=== PATIENT | male | born 1995 | race Caucasian/White ===

== ENCOUNTER 2020-04-05 11:58 | Emergency (ER) | payer OTHER ==
[~2020-04-05] VITALS: Ht 167.6 cm; Wt 74.6 kg
[2020-04-05] MEDS ORDERED: naproxen sodium 220mg tablet PO SCH (13:00)
[2020-04-05] MEDS ORDERED: NAPR-56 PO (13:01)
--- NOTE | 2020-04-05 13:59 | NUR ---
Phoned pharmacy regarding the pending dose of naprosyn that is not available in the ED sherri.
[2020-04-05 14:11] VITALS: BP 134/87
== END 2020-04-05 14:14 | disposition home or self-care (01) ==
LOC: ER 11:59
DX: S16.1XXA Strain of muscle, fascia and tendon at neck level, initial encounter (principal); S80.812A Abrasion, left lower leg, initial encounter; S40.212A Abrasion of left shoulder, initial encounter; Z79.899 Other long term (current) drug therapy; V89.2XXA Person injured in unspecified motor-vehicle accident, traffic, initial encounter; Y93.89 Activity, other specified; Y92.488 Other paved roadways as the place of occurrence of the external cause; Y99.8 Other external cause status
CPT/HCPCS: 72125; 99284